=== PATIENT | female | born 1960 | race Caucasian/White ===

== ENCOUNTER 2017-05-07 15:55 | Outpatient (CLI) | payer BC | END 2017-05-07 15:56 | disposition home or self-care (01) | LOC: CTENTCT 15:55 | PROVIDERS: ATTEND Otolaryngology Plastic Surgery within the Head & Neck | DX: J32.9 Chronic sinusitis, unspecified (principal) | CPT/HCPCS: 70486 ==

== ENCOUNTER 2017-05-13 07:57 | Day surgery (SDC) | payer BC ==
[2017-05-12 13:03] VITALS: BMI 26.6
[2017-05-13] MEDS ORDERED: Oxymetazoline HCl 0.05% ( 15 ML ) ONE (08:44)
[2017-05-13] MEDS ORDERED: Midazolam HCl 2 mg/2 ml Vial ONE (09:12)
[2017-05-13] MEDS ORDERED: Bacitracin Zinc Ointment 30 gm TUBE ONE (09:34)
[2017-05-13] MEDS ORDERED: Lidocaine 1% w/Epinephrine 1:200K 30 ML VIAL ONE (09:34)
[2017-05-13] MEDS ORDERED: Ondansetron HCl/PF 4 MG/2 ML Vial ONE (09:40)
[2017-05-13] MEDS ORDERED: Fentanyl 100 MCG/2 ML VIAL ONE (09:40)
--- NOTE | 2017-05-14 12:31 | OP ---
PREOPERATIVE DIAGNOSES: 1. Chronic rhinosinusitis. 2. Nasal septal deviation. 3. Bilateral inferior turbinate hypertrophy. POSTOPERATIVE DIAGNOSES: 1. Chronic rhinosinusitis. 2. Nasal septal deviation. 3. Bilateral inferior turbinate hypertrophy. PROCEDURES: 1. Bilateral endoscopic sinus surgery, total ethmoidectomies. 2. Bilateral endoscopic sinus surgery, maxillary antrostomies. 3. Bilateral endoscopic sinus surgery, frontal sinusotomies. 4. Bilateral endoscopic sinus surgery, sphenoidotomies. 5. Nasal septoplasty. 6. Bilateral inferior turbinate submucosal resection. 7. Outfracture of bilateral inferior turbinates. SURGEON: Dr. Matt Martinez. ESTIMATED BLOOD LOSS: 50 mL COMPLICATIONS: None. ANESTHESIA: GETA. PROCEDURE IN DETAIL: Patient was taken to the operating room and placed supine on the table. General endotracheal anesthesia was obtained by the Anesthesia staff. Tube was secured in the left lower lip. Patient was then placed in the beach chair position, and Afrin pledgets were placed in the nasal cavity. Injections of 1% lidocaine with 1:100,000 epinephrine were made into the nasal septum as well as the inferior turbinates. Patient was then prepped and draped in standard surgical fashion for nasal surgery. Following this, the Afrin pledgets were removed. A Sunman incision was made on the left nasal septum. Submucoperichondrial dissection was performed. The deviated portions of the septum included portions of the cartilage and the bony septum. These isolated areas were removed using three cutting rongeurs. There was noted to be a large dorsal and caudal strut, left intact for support of the nose. The mucoperichondrial flaps were then reapproximated using a 4-0 gut stitch. Any straight pieces of cartilage were crushed prior to this and placed between the mucoperichondrial flaps. Following this, the inferior turbinates were then punctured with a submucosal coblation wand, and submucosal coblations were performed of multiple areas of the inferior portion of the anterior inferior turbinate. Please note that the submucosal microdebrider was used to submucosally resect the anterior and inferi or portions of the inferior turbinates bilaterally. Following this, the 0 degree scope was advanced to the middle meatus where the middle turbinates were medialized. The uncinate processes were anteri whit fractured using the ball-ended probe and removed using the straight microdebrider and uppattieing B lakeley forceps. Following this, the ethmoidal bulla was identified and was punctured on its medial and inferior aspect and was removed using the microdebrider. Following this, the grand lamella was i dentified and was punctured into the posterior ethmoidal cells. Working from posterior to anterior, the ethmoidal cells were opened in a mucosal-sparing technique. Following this, the sphenoid sinuses were approach through the previous ethmoidectomies with a posterior nasal wall was identified. The natural sphenoid ostia was identified and gently widened medially and inferiorly with the microdebrid er bilaterally. Following this, the 45 degree scope and the upbiting microdebrider was then used to visualize the frontal sinus recess and frontal sinus ostia, which were further opened using the curve d microdebrider and the upbiting Nnekaley forceps. Following this, the nasal cavity was irrigated. MeroPacks were placed. Tanner splints were placed and secured. The patient tolerated the procedure well.
--- NOTE | 2017-05-15 00:18 | EKG ---
Test Reason : PREOP Blood Pressure : / mmHG Vent. Rate : 055 BPM Atrial Rate : 055 BPM P-R Int : 170 ms QRS Dur : 088 ms QT Int : 420 ms P-R-T Axes : 071 -33 035 degrees QTc Int : 401 ms Sinus bradycardia Left axis deviation Abnormal ECG When compared with ECG of 29-DEC-2016 08:42, Borderline criteria for Anterior infarct are no longer Present Nonspecific T wave abnormality no longer evident in Anterior leads Confirmed by Ren DURÁN ([id number]) on 05/15/2017 12:17:54 AM Referred By: MARGUERITE Confirmed By:Ren DURÁN
== END 2017-05-13 12:45 | disposition home or self-care (01) ==
LOC: SDC 07:57
PROVIDERS: ATTEND Otolaryngology Plastic Surgery within the Head & Neck
PROC: 099Q8ZZ Drainage of Right Maxillary Sinus, Via Natural or Artificial Opening Endoscopic (ICD-10-PCS; principal; 2017-05-13)
PROC: 099X8ZZ Drainage of Left Sphenoid Sinus, Via Natural or Artificial Opening Endoscopic (ICD-10-PCS; principal; 2017-05-13)
PROC: 09TV8ZZ Resection of Left Ethmoid Sinus, Via Natural or Artificial Opening Endoscopic (ICD-10-PCS; principal; 2017-05-13)
PROC: 099R8ZZ Drainage of Left Maxillary Sinus, Via Natural or Artificial Opening Endoscopic (ICD-10-PCS; principal; 2017-05-13)
PROC: 099W8ZZ Drainage of Right Sphenoid Sinus, Via Natural or Artificial Opening Endoscopic (ICD-10-PCS; principal; 2017-05-13)
PROC: 09TU8ZZ Resection of Right Ethmoid Sinus, Via Natural or Artificial Opening Endoscopic (ICD-10-PCS; principal; 2017-05-13)
PROC: 09BL0ZZ Excision of Nasal Turbinate, Open Approach (ICD-10-PCS; principal; 2017-05-13)
PROC: 099S8ZZ Drainage of Right Frontal Sinus, Via Natural or Artificial Opening Endoscopic (ICD-10-PCS; principal; 2017-05-13)
PROC: 09RM07Z Replacement of Nasal Septum with Autologous Tissue Substitute, Open Approach (ICD-10-PCS; principal; 2017-05-13)
PROC: 099T8ZZ Drainage of Left Frontal Sinus, Via Natural or Artificial Opening Endoscopic (ICD-10-PCS; principal; 2017-05-13)
DX: J32.0 Chronic maxillary sinusitis (principal); J32.1 Chronic frontal sinusitis; J32.2 Chronic ethmoidal sinusitis; J34.2 Deviated nasal septum; J34.3 Hypertrophy of nasal turbinates; E78.00 Pure hypercholesterolemia, unspecified; I10 Essential (primary) hypertension; H40.9 Unspecified glaucoma; Z88.1 Allergy status to other antibiotic agents; Z83.3 Family history of diabetes mellitus; Z82.49 Family history of ischemic heart disease and other diseases of the circulatory system; Z79.899 Other long term (current) drug therapy; Z90.710 Acquired absence of both cervix and uterus; Z98.890 Other specified postprocedural states
CPT/HCPCS: 36415; 85014; 93005; 93010; J2250; J2405; J3010

== ENCOUNTER 2018-11-29 16:00 | Inpatient (IN) | payer BC ==
--- NOTE | 2018-11-29 09:08 | HP ---
The patient will be undergoing a hip surgical procedure on 11/30/2018. HISTORY OF PRESENT ILLNESS: Ulises is a 58-year-old white female, prior history of a total vaginal hysterectomy many years ago, who has been noticing increasing bulging in her vagina over the past year. She denied any urinary or fecal incontinence. She has also had a gastric sleeve, where she has lost over 120 pounds. She denies any recurrent UTIs or chronic constipation issues. PAST MEDICAL AND SURGICAL HISTORY: As noted. She has had a breast biopsy, abdominoplasty, inguinal hernia, hysterectomy with ovaries remaining in situ, gastric bypass for obesity 04/20/2015. ALLERGIES: SHE HAS NO KNOWN DRUG ALLERGIES. OB HISTORY: Three spontaneous vaginal deliveries. FAMILY HISTORY: Mother has diabetes, heart disease, hypertensive disorder, and skin cancer and breast cancer. CURRENT MEDICATIONS: No current regular medications. PHYSICAL EXAMINATION: VITAL SIGNS: Her height 5 feet 5 inches, weight 184, BMI 30.6, blood pressure 120/70, pulse 75, respirations 18, and O2 saturation 99%. HEENT: Within normal limits. CHEST: Clear to auscultation. HEART: Regular rate and rhythm. S1 and S2 heart sounds. No murmurs, rubs, or gallops. ABDOMEN: Soft, nontender, and nondistended. Well-healed trocar sites. PELVIC: Vulva and vagina had no lesions. Vaginal cuff was intact. No lesions. Bladder was nondistended. She had a midline cystocele grade 2 with a grade 3 rectocele. No pelvic masses were appreciated on examination. ASSESSMENT: This is a 58-year-old white female, prior total vaginal hysterectomy, now with a grade 2 midline cystocele and grade 2 rectocele. PLAN: Plan is to proceed with anterior and posterior repair, which is scheduled for 11/30/2018. Risks and benefits of procedure had been discussed in detail and she is set for surgery. Job ID: [id number]
[2018-11-29 16:08] VITALS: BMI 31.2
[2018-11-30] MEDS ORDERED: Levofloxacin 500 mg/D5W 100 ml Premix Bag ONE (09:42)
[2018-11-30] MEDS ORDERED: Clindamycin/D5W 900 mg/50 ml Premix Bag ONE (09:42)
[2018-11-30] MEDS ORDERED: Lidocaine 1% w/Epinephrine 1:100K 20 ML VIAL ONE (10:50)
[2018-11-30] MEDS ORDERED: Fentanyl 100 MCG/2 ML VIAL ONE (12:32)
[2018-11-30] MEDS ORDERED: Midazolam HCl 2 mg/2 ml Vial ONE (12:32)
[2018-11-30] MEDS ORDERED: Bisacodyl 10 MG SUPP PR PRN (14:38)
[2018-11-30] MEDS ORDERED: Morphine 4 MG/ML VIAL SLOW IVP PRN (14:38)
[2018-11-30] MEDS ORDERED: Simethicone Chewable 80 MG TAB PO PRN (14:38)
[2018-11-30] MEDS ORDERED: Promethazine HCl 25 MG/ML VIAL IM PRN ×2 (14:38→14:54)
[2018-11-30] MEDS ORDERED: diphenhydrAMINE 25 MG CAP PO PRN (14:38)
[2018-11-30] MEDS ORDERED: Zolpidem Tartrate 5 MG TAB PO PRN (14:38)
[2018-11-30] MEDS ORDERED: Ondansetron PF 4 MG/2 ML Vial IVP PRN (14:38)
[2018-11-30] MEDS ORDERED: Acetaminophen 325 MG TAB PO PRN (14:38)
[2018-11-30] MEDS ORDERED: traMADol HCl 50 MG TAB PO PRN (14:38)
[2018-11-30] MEDS ORDERED: WHEAT DEXTRIN PO PRN (14:41)
[2018-11-30] MEDS ORDERED: Ondansetron HCl/PF 4 MG/2 ML Vial IVP PRN (14:54)
[2018-11-30] MEDS ORDERED: Promethazine HCl 25 MG/ML VIAL SLOW IVP PRN (14:54)
[2018-11-30] MEDS ORDERED: BENEFIBER PO PRN (15:54)
--- NOTE | 2018-11-30 16:45 | OP ---
DATE OF PROCEDURE: 11/30/2018 PREOPERATIVE DIAGNOSIS: A 58-year-old white female with prior vaginal hysterectomy, now with symptomatic grade 2 cystocele and grade 3 rectocele. POSTOPERATIVE DIAGNOSIS: A 58-year-old white female with prior vaginal hysterectomy, now with symptomatic grade 2 cystocele and grade 3 rectocele. PROCEDURE PERFORMED: Anterior posterior repair. [employer] CUTTER HAND SURGEON: Kat Ocmapo PA-C ANESTHESIA: General endotracheal. ESTIMATED BLOOD LOSS: 20 mL. COMPLICATIONS: None. COUNTS: Correct x2. ANTIBIOTICS: Levaquin and clindamycin per SCIP protocol. FINDINGS: 1. Adequate reduction on cystocele and rectocele repair with clear urine present in Castro catheter postprocedure. 2. No evidence of any suture placement in the rectal mucosa postprocedure. DISPOSITION: Recovery room, stable. DESCRIPTION OF OPERATIVE PROCEDURE: The patient previously received informed consent in regard to surgery. She was taken back to the operating room, where she received a general endotracheal anesthetic agent without complications. She was placed in dorsal lithotomy position with the use of Janak stirrups and prepped and draped in usual sterile fashion. A Castro catheter was inserted at this time. Exam under anesthesia was also performed. A weighted speculum was placed in the posterior vagina reducing the large rectocele. The vaginal cuff was grasped with 2 Allis clamps, and the anterior vaginal mucosa was infiltrated with 1% lidocaine with epinephrine. A midline anterior vaginal mucosal incision was made with Metzenbaum and tenotomy scissors. This was carried up to about 1.5 cm from the urethral meatus. The anterior vaginal mucosa edges were grasped with Allis clamps for counter traction, and the cystocele was dissected sharply and bluntly away from the endopelvic fascia until it was adequately reduced. Then, the endopelvic fascia was replicated with iqunng-vy-dmgzx sutures of 2-0 Vicryl starting most cephalad and then working back toward the vaginal cuff line. The cystocele was reduced adequately. Hemostasis was also noted. The anterior vaginal mucosa was then reapproximated with interrupted wngojn-zo-ehcds stitches, incorporating some of the endopelvic fascia to rid the space. The weighted speculum was then removed, and the posterior rectocele repair ensued. The vaginal introitus was grasped at the 4 and 8 o'clock position. The perineal body was well preserved on exam. The posterior vaginal mucosa was infiltrated with 1% lidocaine with epinephrine up to the vaginal cuff margin. El scissors was utilized to make an incision in the 6 o'clock in the posterior introitus, and then the posterior vaginal mucosa was undermined with tenotomy scissors carefully staying away from the rectum during the dissection. This was carried up to the vaginal cuff line. The edges of the posterior vaginal mucosa were grasped with Allis clamps for counter traction and exposure sequentially. Once the rectocele had been reduced, endopelvic fascia was dissected sharply and bluntly off the rectocele freeing this up. An extra glove was placed on the right hand, and the rectal exam was then performed to ensure that there was no component of enterocele to the large rectocele noted. There was no evidence of enterocele on rectal exam with the surgeon's finger being in the entirety of the larger bulge consistent with the rectum. A Yuliana blade along with a sponge stick was then placed to retract the large rectocele downward, and this allowed for us to identify good endopelvic fascia higher up along the levator muscle lying toward the vaginal cuff. These two areas were grasped bilaterally with the Allis clamp. A gmotic-vv-yfngt stitch of 0 Vicryl was then placed, and this was secured reducing the upper portion of the rectocele defect. Then, continuing to retract the rectum out of the way of the operative field, the endopelvic fascia was replicated bilaterally toward the midline with 0 Vicryl smsquc-xr-sditx sutures toward the vaginal introitus until the entire rectocele defect was reduced. Three intervening stitches of 0 Vicryl were placed most cephalad and then caudad to reinforce the suture repair line. Good hemostasis was confirmed. The posterior mucosa was then closed with interrupted rqeuer-ct-pinxy stitches of 2-0 Vicryl incorporating the space again starting at the vaginal cuff, working out towards the introitus with good hemostasis and closure confirmed. The rectal exam again was performed. There was no evidence of any inadvertent sutures being placed in the rectal mucosa. A moistened Kerlix was then placed in the vaginal vault for pressure dressing, and then the patient was awakened from anesthesia and transferred to recovery room in stable condition. Job ID: [id number]
[2018-11-30] MEDS: Ketorolac Tromethamine 30 MG/ML VIAL IVP SCH ×2 (18:14→23:54)
[2018-11-30] MEDS: Docusate 100 MG CAP PO SCH (21:29)
[2018-11-30] MEDS: Calcium Citrate 950 MG TAB PO SCH ×3 (21:30→22:16)
[2018-12-01 05:56] LABS: Hemoglobin 13.4 g/dL (12.0-16.0); Mean Corpuscular HGB CONC 33.7 g/dL (32.0-36.0); Mean Corpuscular Volume 94.8 fL (78.0-98.0); Mean Platelet Volume 7.5 fL (7.4-10.4); Platelet Count 187 thou/uL (130-400); RBC Distribution Width 11.1 % (11.5-14.5); Red Blood Cell (RBC) Count 4.19 mill/uL (4.20-5.40); White Blood Cell (WBC) Count 7.7 thou/uL (4.8-10.8)
[2018-12-01] MEDS: Ketorolac Tromethamine 30 MG/ML VIAL IVP SCH ×3 (06:28→18:44)
--- NOTE | 2018-12-01 08:19 | PDOC.EVN ---
Event Note - Event Note Event Note: S: Doing wel. Working on voiding. O: AFVSS HCT 38% perineum dry and intact A/P post op day 1 from A&P. continue bladdder voiding trials.
[2018-12-01] MEDS: Docusate 100 MG CAP PO SCH ×2 (08:36→21:07)
[2018-12-01] MEDS: Calcium Citrate 950 MG TAB PO SCH (08:36)
[2018-12-01] MEDS: Multivit, Therapeutic 1 TAB PO SCH (08:37)
[2018-12-01] MEDS: Fluticasone Propionate Nasal Spray 16 gm Bottle NASAL SCH ×2 (08:37)
[2018-12-01] MEDS: Multivitamin W/ Minerals 1 TAB PO SCH (08:37)
[2018-12-01] MEDS: traMADol HCl 50 MG TAB PO PRN (18:46)
[2018-12-02] MEDS: traMADol HCl 50 MG TAB PO PRN ×2 (00:13→08:41)
[2018-12-02] MEDS: Ketorolac Tromethamine 30 MG/ML VIAL IVP SCH ×2 (00:15→06:32)
[2018-12-02 04:06] LABS: Hemoglobin 12.5 g/dL (12.0-16.0); Mean Corpuscular HGB CONC 34.3 g/dL (32.0-36.0); Mean Corpuscular Hemoglobin 32.5 pg (27.0-31.0); Mean Corpuscular Volume 94.8 fL (78.0-98.0); Mean Platelet Volume 7.4 fL (7.4-10.4); Platelet Count 169 thou/uL (130-400); RBC Distribution Width 11.2 % (11.5-14.5); Red Blood Cell (RBC) Count 3.84 mill/uL (4.20-5.40); White Blood Cell (WBC) Count 6.6 thou/uL (4.8-10.8)
--- NOTE | 2018-12-02 07:31 | PDOC.EVN ---
Event Note - Event Note Event Note: Voiding well this morning. Tolerating diet. O: AFVSS ...PVR<50 ml. Perineum intact/dry. A/P: Pod #2--a&P repair Urinary retention resolved. D/c home...
[2018-12-02] MEDS: Multivitamin W/ Minerals 1 TAB PO SCH (08:02)
[2018-12-02] MEDS: Fluticasone Propionate Nasal Spray 16 gm Bottle NASAL SCH ×2 (08:02)
[2018-12-02] MEDS: Docusate 100 MG CAP PO SCH (08:02)
[2018-12-02] MEDS: Multivit, Therapeutic 1 TAB PO SCH (08:02)
[2018-12-02] MEDS: Calcium Citrate 950 MG TAB PO SCH (08:02)
[2018-12-02 08:12] VITALS: BP 134/82; TEMP 97.8
--- NOTE | 2018-12-02 22:05 | DIS ---
DATE OF ADMISSION: 11/30/2018 DATE OF DISCHARGE: 12/02/2018 DIAGNOSES: Symptomatic grade 3 rectocele and grade 2 cystocele. PROCEDURE PERFORMED: Anterior and posterior repair. SUMMARY OF HOSPITAL COURSE: Ms. Montgomery is a 58-year-old white female with prior hysterectomy, had symptomatic grade 2 cystocele and grade 3 rectocele. She underwent anterior and posterior repair on 11/30/2018. She began voiding trials on postop day #1 and had some elevated postvoid residuals in the 200- 250 range. This resolved over time with continued bladder trials with normal voids with PVRs less than 50 x2 at the time of discharge on postop day #2. Discharge medications will be tramadol 50 mg q.6 hours p.r.n. pain and csfx-acd-rscqzzm ibuprofen. She is to use a stool softener daily and avoid constipation. She has a followup scheduled in 3 weeks. Job ID: [id number]
== END 2018-12-02 10:28 | disposition home or self-care (01) | DRG 748 ==
LOC: SURG A 11-30 08:31 → 3SE 11-30 15:30 → EDSTATUS 11-30 16:00
PROVIDERS: ADMIT Obstetrics & Gynecology; ATTEND Obstetrics & Gynecology
PROC: 0JQC0ZZ Repair Pelvic Region Subcutaneous Tissue and Fascia, Open Approach (ICD-10-PCS; principal; 2018-11-30)
DX: N81.4 Uterovaginal prolapse, unspecified (principal); Z90.710 Acquired absence of both cervix and uterus; Z98.84 Bariatric surgery status; Z88.8 Allergy status to other drugs, medicaments and biological substances; R33.9 Retention of urine, unspecified
CPT/HCPCS: 36415; 85027; J0131; J1885; J1956; J2001; J2250; J2405; J3010; J3490

== ENCOUNTER 2023-01-26 11:44 | Outpatient (CLI) | payer BC | END 2023-01-26 11:45 | disposition home or self-care (01) | LOC: BICRAD 11:44 | PROVIDERS: ATTEND Internal Medicine Rheumatology | DX: M25.541 Pain in joints of right hand (principal); M25.542 Pain in joints of left hand; M25.571 Pain in right ankle and joints of right foot; M25.572 Pain in left ankle and joints of left foot; M19.041 Primary osteoarthritis, right hand; M77.32 Calcaneal spur, left foot; M77.8 Other enthesopathies, not elsewhere classified; L40.50 Arthropathic psoriasis, unspecified ==

== ENCOUNTER 2024-02-02 13:27 | Outpatient (CLI) | payer BC | END 2024-02-02 13:28 | disposition home or self-care (01) | LOC: BICMAMMO 13:27 | PROVIDERS: ATTEND Nurse Practitioner Family | DX: Z12.31 Encounter for screening mammogram for malignant neoplasm of breast (principal); Z78.0 Asymptomatic menopausal state; M85.851 Other specified disorders of bone density and structure, right thigh; M85.852 Other specified disorders of bone density and structure, left thigh; Z80.3 Family history of malignant neoplasm of breast | CPT/HCPCS: 77063; 77067; 77080 ==

== ENCOUNTER 2025-02-02 12:28 | Outpatient (CLI) | payer BC | END 2025-02-02 12:29 | disposition home or self-care (01) | LOC: BICMAMMO 12:28 | PROVIDERS: ATTEND Nurse Practitioner Family | DX: Z12.31 Encounter for screening mammogram for malignant neoplasm of breast (principal); Z80.3 Family history of malignant neoplasm of breast | CPT/HCPCS: 77063; 77067 ==